=== PATIENT | female | born 1990 | race Hispanic/Latino ===

== ENCOUNTER 2022-03-19 07:16 | Inpatient (IN) | payer OTHER, SELFPAY ==
[2022-03-19] VITALS (66 sets, daily range): BP systolic 44–136; BP diastolic 31–95; PULSE 70–132; RESP 16–18; TEMP 36.1–36.4; O2SAT 94–100; BMI 34.0
--- OUTSIDE RECORDS SUMMARY | 2022-03-19 07:21 | XMS_ITS | Encounter Summary ---
:1990 Author Reason for Visit None recorded. Assessment and Plan 1. Uterine size for dates discrepancy ? US, obstetric, follow-up Discussion Note: None recorded.Patient educational handouts: No information available. Plan of Care Reminders Provider Appointments None recorded. ? ? Lab None recorded. ? ? Referral None recorded. ? ? Procedures None recorded. ? ? Surgeries None recorded. ? ? Imaging US, Obstetric, Follow-up 02/06/2022 Shaji chacon Medications Name Start Date ? ? cyclobenzaprine 5 mg tablet ? TAKE 1 TABLET BY MOUTH THREE TIMES DAILY NEEDED ondansetron 4 mg disintegrating tablet ? DISSOLVE 1 TABLET ON THE TONGUE EVERY 8 HOURS Proctozone-HC 2.5 % topical cream perineal applicator ? APPLY THIN LAYER TOPICALLY TO THE AFFECTED AREA 2 TO 4 TIMES DAILY Medications Administered None recorded. Vitals None recorded. Results Lab Results None recorded. Allergies Code Code System Name Reaction Severity Onset NKDA ? ? ? Problems Name Status Onset Date Source ? Active 09/11/2021 ? History of Gestational Diabetes Mellitus Active ? ? Procedures Date Name Performed by ? 02/06/2022 US, Obstetric, Follow-up [address] [place] [address] (Work Place) Vaccine List None recorded. Social History Tobacco Smoking Status Never Smoker Do you have difficulty walking or climbing stairs? N What type of diet are you follo
--- OUTSIDE RECORDS SUMMARY | 2022-03-19 07:21 | XMS_ITS | Encounter Summary ---
:1990 Author Reason for Visit OB visit OB [id number] EDC 03/21/2022 LMP 06/14/2021 Assessment and Plan Assessment Note Patient is _39__weeks . Discuss ed plan. 1. Routine care Discussion Note: None recorded.Patient educational handouts: No information available. Plan of Care Reminders Provider Appointments None recorded. ? ? Lab None recorded. ? ? Referral None recorded. ? ? Procedures None recorded. ? ? Surgeries None recorded. ? ? Imaging None recorded. ? ? Medications Name Start Date ? ? cyclobenzaprine 5 mg tablet ? TAKE 1 TABLET BY MOUTH THREE TIMES DAILY NEEDED ondansetron 4 mg disintegrating tablet ? DISSOLVE 1 TABLET ON THE TONGUE EVERY 8 HOURS Proctozone-HC 2.5 % topical cream perineal applicator ? APPLY THIN LAYER TOPICALLY TO THE AFFECTED AREA 2 TO 4 TIMES DAILY Medications Administered None recorded. Vitals Height Weight BMI Blood Pressure 5 ft 3.5 in 198 lbs 34.5 kg/m2 122/86 mm[Hg] Results Lab Results None recorded. Allergies Code Code System Name Reaction Severity Onset NKDA ? ? ? Problems Name Status Onset Date Source ? Active 09/11/2021 ? History of Gestational Diabetes Mellitus Active ? ? Procedures None recorded. Vaccine List None recorded. Social History Tobacco Smoking Status Never Smoker Do you have difficulty walking or climbing stairs? N What type of diet are you following? REGULAR What is the highest grade or level of school you have comple sarah or [id number]
--- OUTSIDE RECORDS SUMMARY | 2022-03-19 07:21 | XMS_ITS | Encounter Summary ---
:1990 Author Reason for Visit OB visit Assessment and Plan Assessment Note Patient is ___weeks . Discussed plan. 1. Routine care Discussion Note: None [...] BMI Blood Pressure 5 ft 3.5 in 188 lbs 32.8 kg/m2 106/67 mm[Hg] Results Lab Results None recorded. Allergies [...] of school you have comple sarah or [id number] the highest degree you have received?
--- OUTSIDE RECORDS SUMMARY | 2022-03-19 07:21 | XMS_ITS | Encounter Summary ---
:1990 Author Reason for Visit OB visit OB [id number] EDC 03/21/2022 LMP 06/14/2021 Assessment and Plan Assessment Note Patient is _34__weeks . Discuss ed plan. 1. Routine care [...] BMI Blood Pressure 5 ft 3.5 in 194 lbs 33.8 kg/m2 115/79 mm[Hg] Results Lab Results None recorded. Allergies Code Code System Name Reaction Severity Onset NKDA ? ? ? Problems Name Status Onset Date Source ? Active 09/11/2021 ? History of Gestational Diabetes Mellitus Active ? ? Procedures Date Name Performed by ? 02/06/2022 US, Obstetric, Follow-up [place] [address] [place] [address] (Wo
--- OUTSIDE RECORDS SUMMARY | 2022-03-19 07:21 | XMS_ITS ---
:1990 Author Care Team Providers Name Role Phone Unassigned Primary Care Provider Unavailable Allergies Code Code System Name Reaction Severity Status Onset NKDA ? Medications Name Status Start Date Stop Date ? ? Depo-Provera 150 mg/mL intramuscular suspension Active ? Not available Inject 1 mL every 3 months by intramuscular route. Pyridium 200 mg tablet Active ? Not avail able Take 1 tablet 3 times a day by oral route as needed for 3 days. Problems Name Status Onset Date Source ? Dysuria Active ? Encounter Procedures None recorded. Results Lab Results Date Name Specimen Result Interpretation Description Value Range Status Address ? 03/22/2015 Culture, URINE ? Urine Culture, final ? Fi nal [facility]: Urine Routine report [id number] [place], [place] ? ? URINE ? Result 1 comment ? Final [facility]: [id number] [place], [place] ? Urinalysis, ? Leukocytes Negative ? ? In-Office Dipstick Order: Internal U se Only DO No t Attach Compendium DO Not Attach Compendium , Do Not Delete/aristides ge
--- OUTSIDE RECORDS SUMMARY | 2022-03-19 07:21 | XMS_ITS | Encounter Summary ---
:1990 Author Reason for Visit OB visit Assessment and Plan 1. Routine care Discussion Note: None recorded.Patient [...] BMI Blood Pressure 5 ft 3.5 in 189 lbs 33 kg/m2 114/76 mm[Hg] Results Lab Results None recorded. Allergies [...] of school you have comple sarah or [id number] the highest degree you have received? Are you able to walk? YESWOREST Are you able to care for yourself? Y
--- OUTSIDE RECORDS SUMMARY | 2022-03-19 07:21 | XMS_ITS | Encounter Summary ---
[...] BMI Blood Pressure 5 ft 3.5 in 182 lbs 31.7 kg/m2 118/80 mm[Hg] Results Lab Results None recorded. Allergies [...] of school you have comple sarah or [id number] the highest degree you have received? Are you able to walk? YESWOREST Are you able to care for yourself? Y
--- OUTSIDE RECORDS SUMMARY | 2022-03-19 07:21 | XMS_ITS | Encounter Summary ---
:1990 Author Reason for Visit OB visit OB [id number] EDC 03/21/2022 LMP 06/14/2021 Assessment and Plan Assessment Note Patient is _37__weeks . Discuss ed plan. 1. Routine care [...] BMI Blood Pressure 5 ft 3.5 in 197 lbs 34.3 kg/m2 114/76 mm[Hg] Results Lab Results None recorded. Allergies Code Code System Name Reaction Severity Onset NKDA ? ? ? Problems Name Status Onset Date Source ? Active 09/11/2021 ? History of Gestational Diabetes Mellitus Active ? ? Procedures Date Name Performed by ? 02/06/2022 US, Obstetric, Follow-up [place] [address] [place] [address] (Otn
--- NOTE | 2022-03-19 08:02 | WPDOBADMIT ---
Obstetrics - Admit Note Admission Note: record reviewed. No pertinent additions to the history and/or any subsequent changes in the physical findings that are not consistent with the expected course of the were found. IOL, SVE 1-2/80/-2, AROM moderate amoont of clear odorless fluid Additions to the history and/or subsequent changes in the physical findings follow. None.
[2022-03-19 08:24] LABS: Basophils Absolute Auto 0.1 K/mm3 (0.0-0.1); Basophils Percent Auto 0.6 % (0.2-1.2); Eosinophils Absolute Auto 0.2 K/mm3 (0-0.3); Eosinophils Percent Auto 2.1 % (0-4.4); Hematocrit 36.7 % (37.0-47.0); Hemoglobin 12.1 g/dL (12.0-15.0); Immature Granulocyte Absolute 0.03 K/mm3 (0.00-0.031); Immature Granulocyte Percent A 0.4 % (0-0.5); Lymphocytes Absolute Auto 1.78 K/mm3 (0.9-3.2); Lymphocytes Percent Auto 21.1 % (18.3-44.2); Mean Corpuscular Hemoglobin 29.4 pg (26-34); Mean Corpuscular Volume 89.3 fl (80-100); Mean Platelet Volume 11.7 fl (7.4-10.4); Monocytes Absolute Auto 0.4 K/mm3 (0.1-0.6); Monocytes Percent Auto 4.6 % (2.6-8.5); Neutrophils Percent Auto 71.2 % (45.5-73.1); Platelet Count Result 215 k/mm3 (150-375); Red Blood Count 4.11 M/mm3 (4.2-5.4); Red Cell Distribution Width 15.2 % (11.5-14.5); White Blood Count 8.5 K/mm3 (4.5-10.0)
[2022-03-19] MEDS: OXYTOCIN 30 UNITS/NS 500 ML 30 UNITS/500 ML BAG IV CONT (08:26)
[2022-03-19] MEDS: LACTATED RINGERS 1,000 ML 125 ML IV CONT ×2 (08:27→10:18)
--- NOTE | 2022-03-19 09:55 | P.PNAN_ITS ---
Anes - Eval Pre Procedure Procedure: labor pain management Date/Time: 03/19/22 09:55 Surgeon: Eileen Preop Diagnosis: pain during labor Pre Op Diagnosis: iol Patient Data Age: 31 Gender: F Height: 1.63 m Weight: 90 kg Last Vital Signs Temp 97.4 F L 03/19/22 07:59 Pulse 93 03/19/22 09:45 BP 129/95 H 03/19/22 09:45 Pulse Ox 99 03/19/22 09:54 O2 Del Method Room Air 03/19/22 07:37 Allergies Allergy/AdvReac Type Severity Reaction Status Date / Time No Known Allergies Allergy Verified 02/18/22 15:50 Home Medications Medication Instructions Recorded Confirmed Type prenat.vits,zuleika,pej-gztw-thkjq 1 tablet PO DAILY 02/18/22 02/18/22 History Laboratory Tests 03/19/22 03/19/22 03/19/22 08:06 08:06 08:06 WBC 8.5 K/mm3 K/mm3 (4.5-10.0) RBC 4.11 M/mm3 L M/mm3 (4.2-5.4) Hgb 12.1 g/dL g/dL (12.0-15.0) Hct 36.7 % L % (37.0-47.0) MCV 89.3 fl fl (80-100) MCH 29.4 pg pg (26-34) MCHC 33.0 g/dl g/dl (32-36) RDW 15.2 % H % (11.5-14.5) Plt Count 215 k/mm3 k/mm3 (150-375) MPV 11.7 fl H fl (7.4-10.4) Immature Gran % (Auto) 0.4 % % (0-0.5) Neut % (Auto) 71.2 % % (45.5-73.1) Lymph % (Auto) 21.1 % % (18.3-44.2) [place] % (Auto) 4.6 % % (2.6-8.5) Eos % (Auto) 2.1 % % (0-4.4) Baso % (Auto) 0.6 % % (0.2-1.2) Lymph # (Auto) 1.78 K/mm3 K/mm3 (0.9-3.2) [place] # (Auto) 0.4 K/mm3 K/mm3 (0.1-0.6) Eos # (Auto) 0.2 K/mm3 K/mm3 (0-0.3) Baso # (Auto) 0.1 K/mm3 K/mm3 (0.0-0.1) Abs Immat Gran (auto) 0.03 K/mm3 K/mm3 (0.00-0.031) Absolute Neuts (auto) 6.0 K/mm3 K/mm3 (1.3-6.7) Absolute Nucleated RBC 0.0 K/mm3 K/mm3 (0.0-0.012) Nucleated RBC % 0.0 % % (0.0-0.2) RPR Pending Blood Type B Positive Antibody Screen Negative Patient hx anesthesia problems: none Family hx anesthesia problems: none Results Review: All pre-operative results and documents have been reviewed as part of the pre- operative evaluation. [facility] Family History Family History Mother Diabetes mellitus Social History Social History Smoking status: Never smoker Second hand tobacco smoke exposure: No Substance use: never Spiritual care concerns: No Exam Day of Procedure 03/19/22 09:55
--- NOTE | 2022-03-19 12:10 | PM.OBPRVD ---
OB - Delivery Note Procedure Procedure: vaginal delivery Induction method: AROM and Per Pitocin Protocol Delivery monitor: External FHT and External Uterine Route of delivery: Episiotomy description: None Laceration Description: None Specimen: No Quantitative Blood Loss (ml): 110 Anesthesia type: Epidural Disposition: Floor Baby Date of : 03/19/22 Time of : 12:00 Weeks of gestation at delivery: 39 Infant gender: Female presentation: vertex position: Right Occiput Anterior Placenta delivery description: Spontaneous Cord Vessel Description: 3 Vessels, Clamped/Cut and Delayed Cord Clamping score one minute: 8 score five minutes: 9 Narrative: mother and baby skin to skin in stable condition
[2022-03-19] MEDS: OXYTOCIN 30 UNITS/NS 500 ML 30 UNITS/500 ML BAG 125 UNITS IV CONT (12:35)
--- NOTE | 2022-03-19 15:15 | OBPPTRN ---
Patient transferred to post room # 290 via wheelchair accompanied by and Support person present. Pt Oriented to unit, room, information board, rooming in, admission packet and security measures. Pt introductions made and plan of care discussed per post , pain management, breast feeding, daily care activities. PT and spouse both recipients of such instructions and not barriers to learning identified at this time. PT received such instructions per one to one discussion mom baby care guide and demonstrations this shift. Patient verbalizes understanding.
[2022-03-19] MEDS: ACETAMINOPHEN 325 MG TABLET 650 MG PO (17:41)
[2022-03-19] MEDS: IBUPROFEN 600 MG TABLET PO ×2 (17:42→23:17)
[2022-03-19] MEDS: DOCUSATE SODIUM 100 MG CAPSULE PO (17:42)
[2022-03-19] MEDS: LANOLIN (LANSINOH) 7.5 GM CREAM 1 APPLIC TOPICAL (17:44)
[2022-03-20 01:20] VITALS: BP 103/61; PULSE 72; RESP 18; TEMP 36.3; O2SAT 97
[2022-03-20] MEDS: ACETAMINOPHEN 325 MG TABLET 650 MG PO ×3 (02:56→16:00)
[2022-03-20 05:30] VITALS: BP 107/72; PULSE 69; RESP 18; TEMP 36.2; O2SAT 98
[2022-03-20 06:30] LABS: Hematocrit 33.6 % (37.0-47.0); Hemoglobin 10.6 g/dL (12.0-15.0)
--- NOTE | 2022-03-20 07:30 | PC.NURSE ---
Pt introductions made and plan of care discussed per post , pain management, breast feeding, daily care activities and pending discharge to home. PT and spouse both recipients of such instructions and no barriers to learning identified at this time. PT received this shift instructions per one to one discussion, mom baby care guide and demonstrations. Pt verbalized understanding of such care.
--- NOTE | 2022-03-20 08:18 | PM.OBPNVD ---
OB - PN: Subj Subjective Date/time seen: 03/20/22 08:18 Patient comments: no complaints, pain well controlled, incisional pain, tolerating diet and flatus present OB - PN: Obj Data Labs CBC & Chem 7: 03/20/22 05:41 Labs: Laboratory Results - last 24 hr 03/19/22 03/19/22 03/20/22 08:06 08:06 05:41 WBC 8.5 RBC 4.11 L Hgb 12.1 10.6 L Hct 36.7 L 33.6 L MCV 89.3 MCH 29.4 MCHC 33.0 RDW 15.2 H Plt Count 215 MPV 11.7 H Immature Gran % (Auto) 0.4 Neut % (Auto) 71.2 Lymph % (Auto) 21.1 [place] % (Auto) 4.6 Eos % (Auto) 2.1 Baso % (Auto) 0.6 Lymph # (Auto) 1.78 [place] # (Auto) 0.4 Eos # (Auto) 0.2 Baso # (Auto) 0.1 Abs Immat Gran (auto) 0.03 Absolute Neuts (auto) 6.0 Absolute Nucleated RBC 0.0 Nucleated RBC % 0.0 Blood Type B Positive Antibody Screen Negative OB - PN A/P Plan day: 1 Plan: routine care Comments: No problems, routine care Time Spent With Patient Time: Total time spent is greater than 50% in coordination of care (as documented) at patient's floor/unit and/or counseling patient: Exam Const: General: comfortable, no acute distress and alert Resp: Effort & Inspection: normal respiratory effort Auscultation: no crackles, no rales and no rhonchi Cardio: Rate: regular rate Heart sounds: no click, no murmurs and no rubs GI: Inspection: non-distended GI Palp: No Tenderness to palpation present (GI) Auscultation: normal bowel sounds Other: Incision - CDI Extrem: General: normal to inspection, no pedal edema and no calf tenderness
--- NOTE | 2022-03-20 08:35 | P.DS_ITS ---
DS: Admitting Diagnosis Discharge Date March 20 2022 Admitting Diagnosis term OB - DS: Summary OB Procedures : None OB Procedures Intrapartum: Spontaneous Vag Delivery OB Procedures: : None Time Spent with Patient Time attestation: Total time spent providing and/or coordinating discharge services: DS: Data Data Completed and Pending Labs on day of discharge: Labs from last 24 hours 03/20/22 03/19/22 05:41 08:06 Hgb 10.6 L Hct 33.6 L Blood Type B Positive Antibody Screen Negative Discharge Plan Discharge Consulting providers: Martha Fontana Discharging Clinician: Joselin Arellano Patient Disposition: Home, Self-Care Activity: pelvic rest Diet: regular Patient Instructions: Antibiotic Form Stand Alone Forms: General Discharge Information Follow-up/Referrals: Joselin Arellano MD [Physician] - Discharge Medications: Continued #2 Tablet 1 tablet PO DAILY Date of admission: 03/19/22 07:16 Primary Care Provider: PHYSICIAN,ORDER ENTRY REPRESENTATIVE Admitting Provider: Joselin Arellano Attending physician on admission: Joselin Arellano Condition: Stable
[2022-03-20 09:00] VITALS: BP 113/71; PULSE 76; RESP 16; TEMP 36.1; O2SAT 98
[2022-03-20] MEDS: IBUPROFEN 600 MG TABLET PO ×2 (10:44→16:00)
[2022-03-20 10:46] VITALS: PULSE 76; RESP 16; O2SAT 98
[2022-03-20] MEDS: DOCUSATE SODIUM 100 MG CAPSULE PO (10:46)
[2022-03-20] MEDS: MULTIVIT/MIN/PREN/FOL AC/IRON TABLET 1 TAB PO (10:46)
--- NOTE | 2022-03-20 12:47 | WPDANLDPN2 ---
Anes-Prog Note L&D Date/Time: 03/20/22 12:47 Comfortable throughout: labor and delivery Neuraxial method: epidural Epidural/Spinal procedure site: tender Neuro status: Neuro function grossly intact. Cardiovascular status: normal Respiratory status: normal Airway patency: baseline Mental status: baseline Post-Op hydration status: normal Vital Signs: Last Vital Signs Temp 36.1 C L 03/20/22 09:00 Pulse 76 03/20/22 09:00 Resp 16 03/20/22 09:00 BP 113/71 03/20/22 09:00 Pulse Ox 98 03/20/22 09:00 O2 Del Method Room Air 03/19/22 16:30 Pain score (VAS): 3 Post-procedural complaints: none Patient feedback: Patient satisfied with anesthetic care.
--- NOTE | 2022-03-20 15:51 | PC.NURSE ---
[id number] Introductions were made, then consulted with patient to assess needs related to . Mother led the conversation with her?plans to feed?her infant and states baby has an upset stomach due to her bottle feeding a whole bottle, then two hours later her infant cried and she fed the 15 more. Resources provided for inpatient and outpatient services using a resource guide and mom/baby guide. Mother voiced understanding of information and was open for conversation, questions to be answered, and education. Reviewed with mother milk production, risk and benefits of pumping, , and bottle feeding formula. Encouraged mother to call out if she would like to work with support with . Mother states she is able to breastfeed independently, however, it hurts. Assessment of mother's nipples show no excoriation or bruising. Everted nipples are soft and not discolored.
[2022-03-20 15:52] LABS: Rapid Plasma Reagin Non-Reactive (NonReactive)
--- NOTE | 2022-03-20 16:00 | PC.NURSE ---
PT received discharge instructions per protocol and verbalized understanding of such care.
--- NOTE | 2022-03-20 16:25 | PC.NURSE ---
PT discharged to home ambulatory accompanied by spouse and and taken to waiting car. Follow up appts confirmed
[2022-03-21 09:44] VITALS: BP 120/76; PULSE 77; RESP 20; TEMP 36.5; O2SAT 100
== END 2022-03-20 16:25 | disposition home or self-care (01) | DRG 560 ==
LOC: ANHLDR 07:20 → ANHOB2 15:18
PROVIDERS: Advanced Practice Midwife; Admitting Provider Obstetrics & Gynecology; Visit Provider Obstetrics & Gynecology
DX: O80 Encounter for full-term uncomplicated delivery (principal); Z37.0 Single live birth; Z3A.39 39 weeks gestation of pregnancy
CPT/HCPCS: 36415; 85014; 85018; 85025; 86592; 86850; 86900; 86901; A9270; J2590; J2795; J7120

== ENCOUNTER 2025-02-15 13:59 | Outpatient (RCR) | payer OTHER, SELFPAY ==
--- NOTE | ~2025-02-15 | US_ITS ---
EXAMINATION: US OB BPP wo non-stress DATE: 02/15/2025 15:56 INDICATION: Gestational diabetes TECHNIQUE: Real-time pelvic ultrasound was performed. The interpreting radiologist was not present for the study. COMPARISON: None. FINDINGS: There is a single living fetus in vertex presentation. The placenta is anterior. heart rate is 145 beats per minute (bpm). Normal amniotic fluid index of 8.9 cm (5th%-95%: 8.3-24.5 cm at 33 weeks estimated gestational age) . Biophysical profile performed by the technologist: breathing (30 sec sustained breathing in 30 minutes): 2 out of 2 movement (3 gross body movements in 30 minutes): 2 out of 2 tone (one episode of yvrymwu-mvnmmflqt-plsneey limb movement): 2 out of 2 Amniotic fluid pocket (2 cm): 2 out of 2 Total score: 8 out of 8 IMPRESSION: 1. Single living fetus in vertex presentation with heart rate of 145 bpm. 2. Biophysical profile 8 out of 8. Reviewed, dictated and finalized at location A.
[2025-02-15 15:53] VITALS: BP 108/66; PULSE 85
== END 2025-03-29 17:45 | disposition other institution (70) ==
LOC: ANHOBOP 13:59
PROVIDERS: PCP Emergency Medicine; Visit Provider Obstetrics & Gynecology
DX: O24.419 Gestational diabetes mellitus in pregnancy, unspecified control (principal); Z3A.33 33 weeks gestation of pregnancy
CPT/HCPCS: 59025; 76819

== ENCOUNTER 2025-03-19 08:51 | Inpatient (IN) | payer OTHER, SELFPAY ==
[2025-03-19] VITALS (84 sets, daily range): BP systolic 80–149; BP diastolic 25–101; PULSE 64–197; RESP 14–16; TEMP 36.2–37.1; O2SAT 83–100; BMI 36.3
[2025-03-19] MEDS: AMPICILLIN SODIUM 2 GM in SODIUM CHLORIDE 0.9% IV 100 ML 200 ML IVPB (10:37)
[2025-03-19] MEDS: LACTATED RINGERS 1,000 ML 125 ML IV CONT ×2 (10:37→11:59)
[2025-03-19 10:47] LABS: Hematocrit 38.0 % (37.0-47.0); Hemoglobin 12.2 g/dL (12.0-15.0); Immature Granulocyte Percent A 0.4 % (0-0.5); Lymphocytes Absolute Auto 1.41 K/mm3 (0.9-3.2); Mean Corpuscular HGB Conc 32.1 g/dl (32-36); Mean Corpuscular Hemoglobin 27.7 pg (26-34); Mean Corpuscular Volume 86.4 fl (80-100); Nucleated Red Blood Cells Absolute Auto 0.000 K/mm3 (0.0-0.012); Nucleated Red Blood Cells Perc 0.0 % (0.0-0.2); Platelet Count Result 208 k/mm3 (150-375); Red Blood Count 4.40 M/mm3 (4.2-5.4); White Blood Count 9.9 K/mm3 (4.5-10.0)
--- NOTE | 2025-03-19 10:51 | LDADM ---
This patient, Naty Fajardo, was admitted to Labor/Delivery/Recovery 106 on 03/19/25 at 08:51. Plans for labor, pain management and were discussed with patient. Patient/family oriented to hospital policies and general routines including ID bracelet, bed and alarms, visiting hours, pain management, procedures, bathroom and other care routines, personal items, smoking policy, room service/diet and guest tray routines, security routines, and visiting hours. Patient/Family are encouraged to report perceived risks to care and to ask questions if they do not understand what they are told or what they should do. See OBIX for further documentation.
[2025-03-19 11:26] LABS: Syphilis IgG/IgM Antibody Non-Reactive (Nonreactive)
--- NOTE | 2025-03-19 12:01 | WPDOBADMIT ---
Obstetrics - Admit Note Admission Note: record reviewed. No pertinent additions to the history and/or any subsequent changes in the physical findings that are not consistent with the expected course of the were found. Additions to the history and/or subsequent changes in the physical findings follow. admit in labor, gdma-2, anticipate vaginal delivery
--- NOTE | 2025-03-19 12:05 | WPDANESEPP ---
Anes - Eval Pre Procedure Procedure: Labor Epidural Date/Time: 03/19/25 12:05 Surgeon: Marizol Preop Diagnosis: Labor Pain Pre Op Diagnosis: contractions/labor Patient Data Age: 34 Gender: F Height: 1.6 m Weight: 93 kg Last Vital Signs Temp 36.2 C L 03/19/25 11:10 Pulse 91 03/19/25 12:03 BP 130/74 03/19/25 12:03 Pulse Ox 97 03/19/25 12:04 O2 Del Method Room Air 03/19/25 10:50 Allergies Allergy/AdvReac Type Severity Reaction Status Date / Time No Known Allergies Allergy Verified 03/06/25 14:37 Home Medications ?Medication ?Instructions ?Recorded ?Confirmed ?Type prenat.vits,zuleika,rqt-uohy-tyrtv 1 tablet PO DAILY 02/18/22 03/06/25 History insulin NPH isoph U-100 human 100 3 unit subcut HS 02/15/25 03/06/25 History unit/mL subcutaneous suspension (Humulin N NPH U-100 Insulin (isophane susp)) Laboratory Tests 03/19/25 10:17 WBC 9.9 K/mm3 (4.5-10.0) RBC 4.40 M/mm3 (4.2-5.4) Hgb 12.2 g/dL (12.0-15.0) Hct 38.0 % (37.0-47.0) MCV 86.4 fl (80-100) MCH 27.7 pg (26-34) MCHC 32.1 g/dl (32-36) RDW 14.0 % (11.5-14.5) Plt Count 208 k/mm3 (150-375) MPV 10.9 H fl (7.4-10.4) Immature Gran % (Auto) 0.4 % (0-0.5) Neut % (Auto) 80.2 H % (45.5-73.1) Lymph % (Auto) 14.2 L % (18.3-44.2) [place] % (Auto) 3.6 % (2.6-8.5) Eos % (Auto) 1.2 % (0-4.4) Baso % (Auto) 0.4 % (0.2-1.2) Lymph # (Auto) 1.41 K/mm3 (0.9-3.2) [place] # (Auto) 0.4 K/mm3 (0.1-0.6) Eos # (Auto) 0.1 K/mm3 (0-0.3) Baso # (Auto) 0.0 K/mm3 (0.0-0.1) Abs Immat Gran (auto) 0.04 H K/mm3 (0.00-0.031) Absolute Neuts (auto) 7.9 H K/mm3 (1.3-6.7) Absolute Nucleated RBC 0.000 K/mm3 (0.0-0.012) Nucleated RBC % 0.0 % (0.0-0.2) Syphilis IgG/IgM Ab Non-reactive (Nonreactive) Blood Type B Positive Antibody Screen Pending Patient hx anesthesia problems: none Family hx anesthesia problems: none Results Review: All pre-operative results and documents have been reviewed as part of the pre-operative evaluation. [facility] Family History Family History Mother Diabetes mellitus Father Diabetes mellitus Social History Social History Smoking status: Never smoker Second hand tobacco smoke exposure: No Substance use: never Lack of Transportation: No Lack of Food: Never True Current Housing: I Have Housing Concerned About Future Housing: No Difficulty Paying Gas/Electric Bills: No Difficulty Paying for Meds: No Currently Unemployed: No Education: High School Diploma/GED Difficulty w/ Childcare or Family Care: No Spiritual care concerns: No Exam Day of Procedure 03/19/25 12:05 Patient weight: overweight Heart: regular rate and rhythm Lungs: normal air movement Airway: Mallampati scale class II Neurological: alert and oriented
[2025-03-19] MEDS: OXYTOCIN 30 UNITS/NS 500 ML 30 UNITS/500 ML BAG IV CONT (13:09)
--- NOTE | 2025-03-19 13:22 | P.PCNOB_ITS ---
OB - Vaginal Delivery Note Procedure Delivery date: 03/19/25 Events: Gestational Diabetes (insulin) Induction method: None Delivery augmentation: Pitocin Delivery monitor: External FHT and External Uterine Route of delivery: Episiotomy description: None Laceration Description: None Specimen: No Quantitative Blood Loss (ml): 50 Anesthesia type: Epidural Disposition: Floor Complications: No immediate complications [place] Baby Date of : 03/19/25 Time of : 13:13 Gestational Age by Date: 40 gender: Male presentation: vertex position: Right Occiput Anterior Placenta delivery description: Expressed Cord Vessel Description: 3 Vessels, Clamped/Cut and Delayed Cord Clamping score one minute: 8 score five minutes: 9
[2025-03-19] MEDS: IBUPROFEN 600 MG TABLET PO (17:03)
[2025-03-19] MEDS: ACETAMINOPHEN 325 MG TABLET 650 MG PO (18:17)
--- NOTE | 2025-03-19 20:50 | PC.NURSE ---
1930- This RN assisted pt up out of bed to restroom without difficulty. Standby assistance given. Instructed pt on pericare. Ice, tucks, dermaplast spray applied to perineum. Escorted pt back into bed. Will conitnue to monitor.
[2025-03-20] MEDS: IBUPROFEN 600 MG TABLET PO ×3 (00:16→16:00)
[2025-03-20] MEDS: ACETAMINOPHEN 325 MG TABLET 650 MG PO ×3 (00:16→16:01)
[2025-03-20 03:40] VITALS: PULSE 70; O2SAT 99
[2025-03-20 03:41] VITALS: BP 98/56; PULSE 70
[2025-03-20 03:52] VITALS: BP 98/69; PULSE 77; RESP 14; TEMP 36.9; O2SAT 100
[2025-03-20 03:52] LABS: Hematocrit 33.2 % (37.0-47.0); Hemoglobin 10.6 g/dL (12.0-15.0)
[2025-03-20] MEDS: WITCH HAZEL 40 PADS 1 PAD TOPICAL (05:51)
[2025-03-20] MEDS: DOCUSATE SODIUM 100 MG CAPSULE PO (08:04)
[2025-03-20] MEDS: MULTIVIT/MIN/PREN/FOL AC/IRON TABLET 1 TAB PO (08:04)
--- NOTE | 2025-03-20 08:12 | PC.NURSE ---
Patient transferred to post room #286 via wheelchair. Support person present. Oriented to unit, room, information board, rooming in, admission packet and security measures. Patient verbalizes understanding.
[2025-03-20 08:20] VITALS: BP 113/73; PULSE 68; RESP 16; TEMP 36.4; O2SAT 99
--- NOTE | 2025-03-20 10:10 | PC.NURSE ---
Patient viewed the discharge video Mother & Baby Care, The First Two Weeks. Patient was given the opportunity and encouraged to ask questions. Patient verbalized understanding of information shared and has been given the mother/baby guide for home reference.
--- NOTE | 2025-03-20 12:30 | PC.NURSE ---
Introductions were made, then consulted with patient to assess needs related to . Discussed with mother her?plans to feed?her and the?experience so far. She plans to pump when she gets home like she did with her other children. She does not have a breast pump yet (but has 2 double electric pumps from her other births) and she is planning to get a wearable pump. Advised her to contact her insurance to see what pumps they will cover or reimburse her for. Resources provided for inpatient and outpatient services with the feeding sheet, mom/baby guide and name written on the communication board. Mother voiced understanding of information and will call if there is a request for assistance. Reported to the Primary RN.
--- NOTE | 2025-03-20 13:14 | P.PNOB_ITS ---
OB - PN: Subj Subjective Date/time seen: 03/20/25 13:14 Interval history: PPD#1 s/p Doing well, pain controlled Voiding without issue Tolerating general diet OB - PN: Obj Data Labs 03/20/25 03:47 Labs: Laboratory Results - last 24 hr 03/19/25 03/20/25 09:23 03:47 Hgb 10.6 L Hct 33.2 L POC Capillary Glucose 86 OB - PN A/P Assessment and Plan (1) (spontaneous vaginal delivery): Code(s): O80 - Encounter for full-term uncomplicated delivery Status: Acute Plan day: 1 Plan: routine care Time Spent With Patient Time: Total time spent is greater than 50% in coordination of care (as documented) at patient's floor/unit and/or counseling patient: Review of Systems 2 Review of Systems: All systems reviewed & are unremarkable except as noted in HPI and below Exam 2 Const: General: comfortable and no acute distress O rientation/consciousness: patient oriented x3 Resp: Effort & Inspection: normal respiratory effort
[2025-03-20 20:05] VITALS: BP 113/61; PULSE 55; RESP 14; TEMP 36.4; O2SAT 97
[2025-03-21 07:30] VITALS: BP 118/74; PULSE 74; RESP 16; TEMP 36.6; O2SAT 97
[2025-03-21] MEDS: ACETAMINOPHEN 325 MG TABLET 650 MG PO (07:45)
[2025-03-21] MEDS: DOCUSATE SODIUM 100 MG CAPSULE PO (07:45)
[2025-03-21] MEDS: MULTIVIT/MIN/PREN/FOL AC/IRON TABLET 1 TAB PO (07:46)
[2025-03-21] MEDS: IBUPROFEN 600 MG TABLET PO (07:46)
--- NOTE | 2025-03-21 09:11 | P.PNOB_ITS ---
OB - PN: Subj Subjective Date/time seen: 03/21/25 09:11 Interval history: PPD#2 s/p Doing well, pain controlled Voiding without issue Tolerating general diet Ready for discharge home OB - PN: Obj Data Labs 03/20/25 03:47 OB - PN A/P Assessment and Plan (1) (spontaneous vaginal delivery): Code(s): O80 - Encounter for full-term uncomplicated delivery Status: Acute Plan day: 2 Plan: routine care and discharge home Time Spent With Patient Time: Total time spent is greater than 50% in coordination of care (as documented) at patient's floor/unit and/or counseling patient: Review of Systems 2 Review of Systems: All systems reviewed & are unremarkable except as noted in HPI and below Exam 2 Const: General: comfortable and no acute distress O rientation/consciousness: patient oriented x3 Resp: Effort & Inspection: normal respiratory effort
--- NOTE | 2025-03-21 09:13 | PM.OBDSVD ---
DS: Admitting Diagnosis Discharge Date 03/21/25 Admitting Diagnosis labor, GDMA2 DS: Discharge Diagnosis Discharge Diagnosis (1) (spontaneous vaginal delivery): Code(s): O80 - Encounter for full-term uncomplicated delivery Status: Acute OB - DS: Summary OB Procedures : None OB Procedures Intrapartum: Spontaneous Vag Delivery OB Procedures: : None Peripartum Data Laceration Description: None Episiotomy description: None Time Spent with Patient Time attestation: Total time spent providing and/or coordinating discharge services: Discharge Plan Discharge Attending physician on discharge: Frederick Santos Consulting providers: Martha Fontana Discharging Clinician: Frederick Santos Patient Disposition: Home Activity: may shower, as tolerated and pelvic rest Diet: as tolerated Patient Instructions: Antibiotic Form Patient Language: Ukrainian Stand Alone Forms: General Discharge Information Follow-up/Referrals: Martha Fontana CNM [Certified Nurse [employer], LITHOGRAPHIC PROOFER APPRENTICE] - 4 Weeks Discharge Medications: New ibuprofen 600 mg Tablet 600 mg PO Q6H PRN (Reason: Cramping) Qty: 30 0RF Discontinued prenat.vits,zuleika,flc-mfyz-qmvbn Tablet 1 tablet PO DAILY Humulin N NPH U-100 Insulin 100 unit/mL suspension 3 unit subcut HS Date of admission: 03/19/25 08:51 Primary Care Provider: Fransisco Adamson Admitting Provider: Lan Arellano Attending physician on admission: Lan Arellano Condition: Stable
[2025-03-22 11:22] VITALS: BP 123/84; PULSE 99; RESP 18; TEMP 36.7; O2SAT 100
== END 2025-03-21 11:44 | disposition home or self-care (01) | DRG 560 ==
LOC: ANHOB2 03-21 09:13 → ANHLDR 03-22 06:58 → ANHOB2 03-22 06:58 → ANHOBPP 03-22 06:58
PROVIDERS: Advanced Practice Midwife; Obstetrics & Gynecology; Admitting Provider Obstetrics & Gynecology; PCP Emergency Medicine; Visit Provider Obstetrics & Gynecology
DX: O24.424 Gestational diabetes mellitus in childbirth, insulin controlled (principal); Z37.0 Single live birth; Z3A.38 38 weeks gestation of pregnancy; O99.820 Streptococcus B carrier state complicating pregnancy
CPT/HCPCS: 36415; 82948; 85014; 85018; 85025; 86593; 86850; 86900; 86901; A9270; J0290; J2590; J2795; J7120